=== PATIENT | female | born 1955 | race Caucasian/White ===

== ENCOUNTER 2017-04-23 21:24 | Emergency (ER) | payer OTHER ==
[~2017-04-23] VITALS: Ht 160 cm; Wt 98.2 kg
[2017-04-23 21:27] VITALS: BP 155/80
[2017-04-23] MEDS ORDERED: ONDANSETRON 2MG/ML, 2ML ONE (21:55)
[2017-04-23] MEDS ORDERED: MORPHINE SULFATE 4 MG/ML, 1ML ONE (21:56)
[2017-04-23] MEDS ORDERED: KETOROLAC 30 MG/1 ML ONE (21:56)
[2017-04-23] MEDS ORDERED: SODIUM CHLORIDE 0.9% 1,000ML IV ONE (22:00)
[2017-04-23] MEDS ORDERED: KETOROLAC 30 MG/1 ML IVPush ONE (22:00)
[2017-04-23] MEDS ORDERED: MORPHINE SULFATE 4 MG/ML, 1ML IVPush PRN (22:00)
[2017-04-23] MEDS ORDERED: ONDANSETRON 2MG/ML, 2ML IVPush ONE (22:00)
[2017-04-23 22:15] LABS: BASOPHILS # (AUTO) 0.02 x10^3/uL (0-0.1); BASOPHILS % (AUTO) 0 % (0-1); EOSINOPHILS # (AUTO) 0.16 x10^3/uL (0-0.4); EOSINOPHILS % (AUTO) 2 % (1-7); LYMPHOCYTES # (AUTO) 2.19 x10^3/uL (1-3.4); LYMPHOCYTES % (AUTO) 23 % (22-44); MD NO; MEAN CORPUSCULAR HEMOGLOBIN 30.5 pg (27.0-34.8); MEAN CORPUSCULAR HGB CONC 33.8 g/dL (32.4-35.8); MEAN CORPUSCULAR VOLUME 90.3 fL (80-100); MEAN PLATELET VOLUME 8.1 fL (7.4-10.4); MONOCYTES # (AUTO) 0.53 x10^3/uL (0.2-0.8); MONOCYTES % (AUTO) 6 % (2-9); NEUTROPHILS # (AUTO) 6.56 x10^3/uL (1.8-6.8); NEUTROPHILS % (AUTO) 69 % (42-75); PLATELET COUNT 293 x10^3/uL (130-400); RED BLOOD COUNT 4.82 x10^6/uL (3.82-5.3); RED CELL DISTRIBUTION WIDTH 13.3 % (9.6-15.2)
[2017-04-23 22:26] LABS: ALANINE AMINOTRANSFERASE 39 U/L (12-78); ALBUMIN 3.6 g/dL (3.4-5.0); ANION GAP 9 mmol/L (5-15); CALCIUM 9.4 mg/dL (8.5-10.1); CHLORIDE 110 mmol/L (98-107); CREATININE 1.26 mg/dL (0.55-1.02)
[2017-04-23 22:28] LABS: ALKALINE PHOSPHATASE 100 U/L (45-117); BILIRUBIN,TOTAL 0.3 mg/dL (0.2-1.0); TOTAL PROTEIN 7.5 g/dL (6.4-8.2)
[2017-04-24] MEDS ORDERED: SODIUM CHLORIDE 0.9% 1,000ML IVBOLUS ONE
[2017-04-24 00:16] LABS: CULTURE INDICATED? NO
[2017-04-24 00:17] LABS: MICROSCOPIC INDICATED
[2017-04-24] MEDS ORDERED: HYDROcodone/APAP 5/325 TABLET ONE (01:09)
[2017-04-24] MEDS ORDERED: ONDANSETRON ODT 4 MG ONE (01:09)
[2017-04-24] MEDS ORDERED: HYDROcodone/APAP 5/325 TABLET PO ONE (01:30)
[2017-04-24] MEDS ORDERED: ONDANSETRON 2MG/ML, 2ML IVPush ONE (01:30)
== END 2017-04-24 01:30 | disposition home or self-care (01) ==
LOC: ED 22:19
DX: N20.1 Calculus of ureter (principal); I10 Essential (primary) hypertension
CPT/HCPCS: 36415; 74176; 80053; 81001; 83690; 85025; 96361; 96374; 96375; 96376; 99285; J1885; J2405; J7030

== ENCOUNTER 2020-02-29 15:04 | Outpatient (CLI) | payer BC, OTHER | END 2020-02-29 23:59 | disposition home or self-care (01) | LOC: CFH 15:04 | PROVIDERS: ATTEND Family Medicine | DX: Z12.31 Encounter for screening mammogram for malignant neoplasm of breast (principal) | CPT/HCPCS: 77063; 77067 ==